=== PATIENT | female | born 1995 | race Hispanic/Latino ===

== ENCOUNTER 2017-08-12 12:42 | Emergency (ER) | payer OTHER ==
[2017-08-12 13:16] LABS: Urine Blood 1+ (NEG); Urine Glucose NEGATIVE (NEG); Urine Protein NEGATIVE (NEG); Urine Specific Gravity >1.030 (1.005-1.030)
[2017-08-12] MEDS ORDERED: KETOROLAC 30 MG/ML INJ ONE (13:17)
[2017-08-12] MEDS ORDERED: CYCLOBENZAPRINE 10 MG TAB ONE (13:17)
--- NOTE | 2017-08-12 13:42 | RAD REPORT ---
EXAM DESCRIPTION: RAD - C Spine Ap/Lat - 08/12/2017 1:37 pm CLINICAL HISTORY: Neck pain status post injury FINDINGS: The alignment of the cervical spine is satisfactory. No fracture or dislocation is seen.
--- NOTE | 2017-08-12 14:40 | EDPHYS ---
Physician Documentation [facility] Name: Sweta Figueroa Age: 22 yrs Sex: Female : 1995 Arrival Date: 08/12/2017 Time: 12:45 Bed 11 Private MD: Tulio Kelly V ED Physician Josafat Forrest HPI: 08/12 13:05 This 22 yrs old Female presents to ER via Ambulatory with complaints of Stiff cp Neck, Neck Pain, >24Hrs Old. 13:05 The patient or guardian complains of an injury, pain, that is acute, tenderness. The cp symptoms are located on the posterior and left lateral neck. 13:05 Onset: The symptoms/episode began/occurred yesterday, and became worse today. Context: cp The neck injury/problem resulted from while swimming this past Friday, fell and tumbled from board. Patient reports feeling "pop" after fall. Denies immediate pain. Pain started next day and worse today. 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 - Social history:: Smoking status: Patient/guardian denies using tobacco. - Ebola Screening: : No symptoms or risks identified at this time. ROS: 13:12 Eyes: Negative for injury, pain, redness, and discharge. cp 13:12 Constitutional: Negative for body aches, chills, fever, poor PO intake. 13:12 ENT: Negative for drainage from ear(s), ear pain, sore throat, difficulty swallowing, difficulty handling secretions. 13:12 Neck: Positive for pain with movement, pain at rest, stiffness, tenderness, Negative for swollen nodes. 13:12 Cardiovascular: Negative for chest pain, edema, palpitations. 13:12 Respiratory: Negative for cough, shortness of breath, wheezing. 13:12 Abdomen/GI: Negative for abdominal pain, nausea, vomiting, diarrhea, constipation. cp 13:12 Back: Negative for pain at rest, pain with movement, radiated pain. 13:12 : Negative for urinary symptoms, flank pain. 13:12 MS/extremity: Negative for decreased range of motion, paresthesias, swelling, tenderness. 13:12 Skin: Negative for cellulitis, rash. 13:12 Neuro: Negative for altered mental status, gait disturbance, headache, numbness, tingling, weakness. 13:12 All other systems are negative. Exam: 13:15 Constitutional: The patient appears in no acute distress, alert, awake, non-toxic, well cp developed, well nourished. 13:15 Head/Face: Normocephalic, atraumatic. cp 13:15 Eyes: Periorbital structures: appear normal, Pupils: equal, round, and reactive to light and accomodation, Conjunctiva: normal, no exudate, no injection, Sclera: no appreciated abnormality, Lids and lashes: appear normal, bilaterally. 13:15 ENT: External ear(s): are unremarkable, Ear canal(s): are normal, clear, TM's: bulging, is not appreciated, bilaterally, dullness, bilaterally, erythema, is not appreciated, bilaterally, Nose: is normal, Mouth: Lips: moist, Oral mucosa: pink and intact, moist, Posterior pharynx: is normal, airway is patent, no erythema, no exudate. 13:15 Neck: C-spine: vertebral tenderness, is not appreciated, crepitus, is not appreciated, ROM/movement: pain, that is moderate, with rotation to the right, Meningeal signs: are not present, Lymph nodes: no appreciated lymphadenopathy. 13:15 Chest/axilla: Inspection: normal, Palpation: is normal, no crepitus, no tenderness. 13:15 Cardiovascular: Rate: normal, Rhythm: regular, Pulses: Pulses are 2+ in right radial artery and left radial artery. 13:15 Respiratory: the patient does not display signs of respiratory distress, Respirations: normal, no use of accessory muscles, no retractions, no splinting, no tachypnea, labored breathing, is not present, Breath sounds: are clear throughout, no decreased breath sounds, no stridor, no wheezing. 13:15 Abdomen/GI: Exam negative for discomfort, distension, guarding, Inspection: abdomen appears normal. 13:15 Back: pain, is absent, ROM is normal. 13:15 Skin: cellulitis, is not appreciated, no rash present. 13:15 Neuro: Orientation: to person, place \\T\\ time. Mentation: lucid, able to follow commands, Cerebellar function: is grossly normal, Motor: moves all fours, strength is normal, Sensation: no obvious gross deficits, Gait: is steady, at a normal pace, without difficulty. Vital Signs: 12:50 BP 122 / 68; Pulse 82; Resp 16 S; Temp 98.0(TE); Pulse Ox 99% on R/A; Weight 72.57 kg aa5 (R); Height 5 ft. 7 in. (170.18 cm) (R); Pain 8/10; 14:55 BP 120 / 70; Pulse 80; Resp 17; Pulse Ox 100% on R/A; kr2 12:50 Body Mass Index 25.06 (72.57 kg, 170.18 cm) aa5 MDM: 12:54 Patient medically screened. cp 13:15 Differential diagnosis: C-Spine Fracture Cervical Disc Herniation Cervical Raiculopathy cp Cervical Spondylosis Neck Contusion Thoracic Outlet Syndrome torticollis, Whiplash Injury. 14:38 Data reviewed: vital signs, nurses notes, radiologic studies, plain films, and as a cp result, I will discharge patient. 14:38 Test interpretation: by ED physician or midlevel provider: plain radiologic studies. cp Counseling: I had a detailed discussion with the patient and/or guardian regarding: the historical points, exam findings, and any diagnostic results supporting the discharge/admit diagnosis, radiology results, the need for outpatient follow up, a family practitioner, to return to the emergency department if symptoms worsen or persist or if there are any questions or concerns that arise at home. Response to treatment: the patient's symptoms have mildly improved after treatment. 08/12 13:14 Order name: Urine Dipstick--Ancillary (enter results); Complete Time: 14:35 bd 08/12 13:14 Order name: Urine --Ancillary (enter results); Complete Time: 14:35 bd 08/12 12:54 Order name: Urine Dipstick-Ancillary (obtain specimen); Complete Time: 13:13 cp 08/12 13:09 Order name: XRAY C Spine Ap/lat; Complete Time: 14:35 cp 08/12 14:35 Interpretation: Report reviewed. cp 08/12 12:54 Order name: Urine Test (obtain specimen); Complete Time: 13:13 cp Administered Medications: 13:21 Drug: Flexeril 10 mg Route: PO; kr2 14:55 Follow up: Response: No adverse reaction kr2 13:22 Drug: TORadol 60 mg Route: IM; Site: right gluteus; kr2 14:56 Follow up: Response: No adverse reaction; Pain is decreased kr2 Disposition: 08/12/17 14:40 Discharged to Home. Impression: Strain of muscle, fascia and tendon at neck level. - Condition is Stable. - Discharge Instructions: Soft Tissue Injury of the Neck, Cervical Sprain. - Prescriptions for Naprosyn 500 mg Oral Tablet - take 1 tablet by ORAL route 2 times per day take with food; 20 tablet. Cyclobenzaprine 10 mg Oral Tablet - take 1 tablet by ORAL route every 8 hours As needed no driving while taking medication; 20 tablet. - Medication Reconciliation Form, Thank You Letter, Antibiotic Education, Prescription Opioid Use, Work release form form. - Follow up: Tulio Kelly MD; When: 2 - 3 days; Reason: Recheck today's complaints. - Problem is new. - Symptoms have improved. Addendum: 08/13/2017 16:17 Co-signature as Attending Physician, Josafat Forrest MD. r n Signatures: Dispatcher [employer] EDMS Josafat Forrest MD MD rn Calderon, Audri RN RN aa5 Socrates Saldivar PA PA cp Hailee Nath, RN RN kr2 Corrections: (The following items were deleted from the chart) 08/12 14:57 14:40 08/12/2017 14:40 Discharged to Home. Impression: Strain of muscle, fascia and kr2 tendon at neck level. Condition is Stable. Forms are Medication Reconciliation Form, Thank You Letter, Antibiotic Education, Prescription Opioid Use. Follow up: Tulio Kelly; When: 2 - 3 days; Reason: Recheck today's complaints. Problem is new. Symptoms have improved. cp
--- NOTE | 2017-08-12 14:40 | ER ---
Nurse's Notes [facility] Name: Sweta Figueroa Age: 22 yrs Sex: Female : 1995 Arrival Date: 08/12/2017 Time: 12:45 Bed 11 Private MD: Tulio Kelly V Diagnosis: Strain of muscle, fascia and tendon at neck level Presentation: 08/12 12:48 Presenting complaint: Patient states: "I was kneeboarding Friday and the board went aa5 under me and I flipped and my neck felt like it popped". Pt c/o neck pain. Transition of care: patient was not received from another setting of care. Onset of symptoms was August 2017. Risk Assessment: Do you want to hurt yourself or someone else? Patient reports no desire to harm self or others. Initial Sepsis Screen: Does the patient meet any 2 criteria? No. Patient's initial sepsis screen is negative. Does the patient have a suspected source of infection? No. Patient's initial sepsis screen is negative. Care prior to arrival: None. 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 - Social history:: Smoking status: Patient/guardian denies using tobacco. - Ebola Screening: : No symptoms or risks identified at this time. Screenin:55 Abuse screen: Denies threats or abuse. Nutritional screening: No deficits noted. aa5 Tuberculosis screening: No symptoms or risk factors identified. Fall Risk None identified. Assessment: 12:53 General: Appears uncomfortable, Behavior is calm, cooperative. Pain: Complains of pain aa5 in neck Pain does not radiate. Pain currently is 8 out of 10 on a pain scale. Quality of pain is described as aching, Pain began 2-3 days ago Is continuous, Aggravated by increased activity. Neuro: Level of Consciousness is awake, alert, obeys commands, Oriented to person, place, time, situation. Cardiovascular: No deficits noted. Respiratory: Airway is patent Respiratory effort is even, unlabored, Respiratory pattern is regular, symmetrical. GI: No signs and/or symptoms were reported involving the gastrointestinal system. : No signs and/or symptoms were reported regarding the genitourinary system. EENT: No signs and/or symptoms were reported regarding the EENT system. Derm: Skin is pink, warm \\T\\ dry. Musculoskeletal: Range of motion: intact in all extremities. 13:22 Reassessment: Patient taking to radiology by tech via wheelchair, no distress. kr2 13:41 Reassessment: Patient appears in no apparent distress at this time. Patient and/or kr2 family updated on plan of care and expected duration. Pain level reassessed. Patient is alert, oriented x 3, equal unlabored respirations, skin warm/dry/pink. 14:55 Reassessment: Patient appears in no apparent distress at this time. Patient and/or kr2 family updated on plan of care and expected duration. Pain level reassessed. Patient is alert, oriented x 3, equal unlabored respirations, skin warm/dry/pink. Patient states symptoms have improved. Vital Signs: 12:50 BP 122 / 68; Pulse 82; Resp 16 S; Temp 98.0(TE); Pulse Ox 99% on R/A; Weight 72.57 kg aa5 (R); Height 5 ft. 7 in. (170.18 cm) (R); Pain 8/10; 14:55 BP 120 / 70; Pulse 80; Resp 17; Pulse Ox 100% on R/A; kr2 12:50 Body Mass Index 25.06 (72.57 kg, 170.18 cm) aa5 ED Course: 12:45 Patient arrived in ED. mr 12:46 Tulio Kelly MD is Private Physician. mr 12:49 Triage completed. aa5 12:49 Arm band placed on. aa5 12:49 Patient has correct armband on for positive identification. aa5 12:51 Debbie Lennon, DEVORAH is Primary Nurse. aa5 12:54 Socrates Saldivar PA is PHCP. cp 12:54 Josafat Forrest MD is Attending Physician. cp 12:55 No provider procedures requiring assistance completed. aa5 13:31 Patient moved to radiology via wheelchair. jb2 13:32 XRAY C Spine Ap/lat In Process Unspecified. EDMS 14:39 Tulio Kelly MD is Referral Physician. cp 14:56 Patient did not have IV access during this emergency room visit. kr2 Administered Medications: 13:21 Drug: Flexeril 10 mg Route: PO; kr2 14:55 Follow up: Response: No adverse reaction kr2 13:22 Drug: TORadol 60 mg Route: IM; Site: right gluteus; kr2 14:56 Follow up: Response: No adverse reaction; Pain is decreased kr2 Outcome: 14:40 Discharge ordered by MD. kaela 14:56 Discharged to home ambulatory, with friend. kr2 14:56 Condition: good 14:56 Discharge instructions given to patient, Instructed on discharge instructions, follow up and referral plans. medication usage, Demonstrated understanding of instructions, follow-up care, medications, Prescriptions given X 2. 14:57 Patient left the ED. kr2 Signatures: Dispatcher [employer] EDMT SandersMarcia romero Gris Ramirese jb2 Debbie Lennon, RN RN aa5 Socrates Saldivar PA PA Hailee Auguste RN RN kr2
== END 2017-08-12 14:57 | disposition home or self-care (01) ==
LOC: ER 12:42
DX: S16.1XXA Strain of muscle, fascia and tendon at neck level, initial encounter (principal); X58.XXXA Exposure to other specified factors, initial encounter; Y93.11 Activity, swimming; Y92.9 Unspecified place or not applicable
CPT/HCPCS: 72040; 81003; 81025; 96372; 99283

== ENCOUNTER 2018-12-07 06:50 | Emergency (ER) | payer OTHER ==
[2018-12-07 08:17] LABS: Basophils % 0.7 % (0-1.3); Hematocrit 37.5 % (36.0-45.0); Lymphocytes % 31.4 % (15.3-44.8); MPV 9.4 fL (7.6-11.3); RBC Red Blood Cell Count 4.21 M/uL (3.86-4.86)
[2018-12-07 08:18] LABS: Urine Blood TRACE (NEG); Urine Glucose NEGATIVE (NEG); Urine Protein NEGATIVE (NEG); Urine Specific Gravity >1.030 (1.005-1.030)
[2018-12-07 08:20] LABS: BUN Blood Urea Nitrogen 18 mg/dL (7-18); Bicarbonate 28 mmol/L (21-32); Glucose Level 91 mg/dL (74-106); Potassium 3.9 mmol/L (3.5-5.1); Sodium Level 141 mmol/L (136-145)
[2018-12-07 08:36] LABS: Urine Bacteria 20-50 /HPF (<20); Urine Culture Reflex Order REFLEXED
[2018-12-07 08:37] LABS: Urine Mucus SLIGHT /HPF (NONE SEEN)
--- NOTE | 2018-12-07 14:13 | RAD REPORT ---
EXAM DESCRIPTION: CT STONE PROTOCOL CLINICAL HISTORY: Back and flank pain. COMPARISON: None. TECHNIQUE: Contiguous axial images obtained through the abdomen and pelvis without IV contrast Coronal and Sagittal reformatted images provided. This exam was performed according to our departmental dose-optimization program, which includes automated exposure control, adjustment of the mA and/or kV according to patient size and/or use of iterative reconstruction technique. FINDINGS: The inferior lung umaña are clear. Non-contrast imaging of the liver, spleen, pancreas, adrenal glands and kidney are within normal limits. No tract stone or hydronephrosis. Trace free fluid is seen in the pelvis. Sigmoid diverticulosis coli is present without diverticulitis. No lytic or blastic bone lesion. Mild spondylosis is present with mild retrolisthesis at L5-S1. IMPRESSION: No evidence of urinary tract stone or obstructive uropathy.
--- NOTE | 2018-12-07 15:02 | EDPHYS ---
Physician Documentation [facility] Name: Sweta Figueroa Age: 23 yrs Sex: Female : 1995 Arrival Date: 12/07/2018 Time: 06:54 Bed External Waiting Private MD: ED Physician Stanley Wade HPI: 12/07 07:40 This 23 yrs old Female presents to ER via Ambulatory with complaints of Back kb Pain. 07:40 The patient complains of pain in the left flank and right flank. The pain does not kb radiate. Onset: The symptoms/episode began/occurred at 03:00. Modifying factors: The symptoms are alleviated by nothing. the symptoms are aggravated by nothing. Associated signs and symptoms: The patient has no apparent associated signs or symptoms. Severity of pain: At its worst the pain was moderate in the emergency department the pain is unchanged. The patient has experienced a previous episode. The patient has not recently seen a physician. Pt reports bilateral flank pain that started at 0300. Denies any other symptoms, including frequency, dysuria, fever.. 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 - Social history:: Smoking status: . - Ebola Screening: : Patient negative for fever greater than or equal to 101.5 degrees Fahrenheit, and additional compatible Ebola Virus Disease symptoms Patient denies exposure to infectious person Patient denies travel to an Ebola-affected area in the 21 days before illness onset No symptoms or risks identified at this time. ROS: 07:38 Constitutional: Negative for fever, chills, and weight loss, ENT: Negative for injury, kb pain, and discharge, Neck: Negative for injury, pain, and swelling, Cardiovascular: Negative for chest pain, palpitations, and edema, Respiratory: Negative for shortness of breath, cough, wheezing, and pleuritic chest pain, Abdomen/GI: Negative for abdominal pain, nausea, vomiting, diarrhea, and constipation, : Negative for injury, bleeding, discharge, and swelling, MS/Extremity: Negative for injury and deformity, Skin: Negative for injury, rash, and discoloration, Neuro: Negative for headache, weakness, numbness, tingling, and seizure. 07:38 Back: Positive for flank pain, bilaterally. Exam: 07:38 Constitutional: This is a well developed, well nourished patient who is awake, alert, kb and in no acute distress. Head/Face: Normocephalic, atraumatic. ENT: Nares patent. No nasal discharge, no septal abnormalities noted. Tympanic membranes are normal and external auditory canals are clear. Oropharynx with no redness, swelling, or masses, exudates, or evidence of obstruction, uvula midline. Mucous membranes moist. Neck: Trachea midline, no thyromegaly or masses palpated, and no cervical lymphadenopathy. Supple, full range of motion without nuchal rigidity, or vertebral point tenderness. No Meningismus. Chest/axilla: Normal chest wall appearance and motion. Nontender with no deformity. No lesions are appreciated. Cardiovascular: Regular rate and rhythm with a normal S1 and S2. No gallops, murmurs, or rubs. Normal PMI, no JVD. No pulse deficits. Respiratory: Lungs have equal breath sounds bilaterally, clear to auscultation and percussion. No rales, rhonchi or wheezes noted. No increased work of breathing, no retractions or nasal flaring. Skin: Warm, dry with normal turgor. Normal color with no rashes, no lesions, and no evidence of cellulitis. MS/ Extremity: Pulses equal, no cyanosis. Neurovascular intact. Full, normal range of motion. Neuro: Awake and alert, GCS 15, oriented to person, place, time, and situation. Cranial nerves II-XII grossly intact. Motor strength 5/5 in all extremities. Sensory grossly intact. Cerebellar exam normal. Normal gait. 07:38 Abdomen/GI: Inspection: abdomen appears normal, Bowel sounds: normal, in all quadrants, Palpation: soft, in all quadrants, mild abdominal tenderness, in the right lower quadrant and left lower quadrant. 07:38 Back: CVA tenderness, that is mild, is noted bilaterally. Vital Signs: 07:08 BP 114 / 73; Pulse 72; Resp 16; Pulse Ox 100% on R/A; Weight 74.84 kg; Height 5 ft. 7 iw in. (170.18 cm); Pain 5/10; 09:09 BP 112 / 80; Pulse 64; Resp 16; Pulse Ox 98% ; bp 07:08 Body Mass Index 25.84 (74.84 kg, 170.18 cm) iw MDM: 06:58 Patient medically screened. kb 07:35 Data reviewed: vital signs, nurses notes. Data interpreted: Pulse oximetry: on room air kb is 100 %. Interpretation: normal. 09:39 Counseling: I had a detailed discussion with the patient and/or guardian regarding: the kb historical points, exam findings, and any diagnostic results supporting the discharge/admit diagnosis, lab results, radiology results, the need for outpatient follow up, a family practitioner, to return to the emergency department if symptoms worsen or persist or if there are any questions or concerns that arise at home. 12/07 07:27 Order name: Urine Dipstick-Ancillary (obtain specimen) kb Administered Medications: No medications were administered Disposition: 12/07/18 09:40 Discharged to Home. Impression: Bilateral Flank Pain. - Condition is Stable. - Discharge Instructions: Flank Pain, [id number]. - Prescriptions for Diclofenac Sodium 75 mg Oral Tablet, Delayed Release (E.C.) - take 1 tablet by ORAL route 2 times per day As needed; 30 tablet. - Medication Reconciliation Form, Thank You Letter, Antibiotic Education, Prescription Opioid Use, Work release form form. - Follow up: Emergency Department; When: As needed; Reason: Worsening of condition. Follow up: Private Physician; When: 2 - 3 days; Reason: Recheck today's complaints, Continuance of care, Re-evaluation by your physician. Addendum: 12/10/2018 05:10 Co-signature as Attending Physician, Stanley Wade MD Available for consultation at p s1 all times . Signatures: Barb Spear, DELMY-Stefan BROCK-Sally Enriquez RN RN Stanley Ivy MD MD ps1 Corrections: (The following items were deleted from the chart) 12/07 13:44 09:40 12/07/2018 09:40 Discharged to Home. Impression: Bilateral Flank Pain. Condition iw is Stable. Forms are Medication Reconciliation Form, Thank You Letter, Antibiotic Education, Prescription Opioid Use. Follow up: Emergency Department; When: As needed; Reason: Worsening of condition. Follow up: Private Physician; When: 2 - 3 days; Reason: Recheck today's complaints, Continuance of care, Re-evaluation by your physician. kb
--- NOTE | 2018-12-07 15:02 | ER ---
Nurse's Notes [facility] Name: Sweta Figueroa Age: 23 yrs Sex: Female : 1995 Arrival Date: 12/07/2018 Time: 06:54 Bed External Waiting [facility] MD: Diagnosis: Bilateral Flank Pain Presentation: 12/07 07:05 Presenting complaint: Patient states: mid back pain started at 0300 this morning, abd iw cramping started 30 minutes later, denies n/v/d, denies urinary s/s, states it feels like kidney pain. Transition of care: patient was not received from another setting of care. Onset of symptoms was December 07, 2018. Risk Assessment: Do you want to hurt yourself or someone else? Patient reports no desire to harm self or others. Initial Sepsis Screen: Does the patient meet any 2 criteria? No. Patient's initial sepsis screen is negative. Does the patient have a suspected source of infection? No. Patient's initial sepsis screen is negative. Care prior to arrival: None. 07:05 Method Of Arrival: Ambulatory iw 07:05 Acuity: DOMINIQUE 3 iw Triage Assessment: 07:19 General: Appears in no apparent distress. comfortable, Behavior is cooperative, bp appropriate for age, anxious. Pain: Complains of pain in back. EENT: No deficits noted. Neuro: No deficits noted. Cardiovascular: No deficits noted. Respiratory: No deficits noted. GI: No signs and/or symptoms were reported involving the gastrointestinal system. : No signs and/or symptoms were reported regarding the genitourinary system. Derm: No deficits noted. Musculoskeletal: Circulation, motion, and sensation intact. Range of motion: intact in all extremities. 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 - Social history:: Smoking status: . - Ebola Screening: : Patient negative for fever greater than or equal to 101.5 degrees Fahrenheit, and additional compatible Ebola Virus Disease symptoms Patient denies exposure to infectious person Patient denies travel to an Ebola-affected area in the 21 days before illness onset No symptoms or risks identified at this time. Screenin:21 Abuse screen: Denies threats or abuse. Denies injuries from another. Nutritional bp screening: No deficits noted. Tuberculosis screening: No symptoms or risk factors identified. Fall Risk None identified. Assessment: 07:10 General: SEE TRIAGE NOTE. Neuro: No deficits noted. bp 09:00 Reassessment: Patient and/or family updated on plan of care and expected duration. Pain bp level reassessed. Patient is alert, oriented x 3, equal unlabored respirations, skin warm/dry/pink. 10:50 Reassessment: PT D/C HOME AMBULATORY WITH FAMILY, DX WITH FLANK PAIN. bp Vital Signs: 07:08 BP 114 / 73; Pulse 72; Resp 16; Pulse Ox 100% on R/A; Weight 74.84 kg; Height 5 ft. 7 iw in. (170.18 cm); Pain 5/10; 09:09 BP 112 / 80; Pulse 64; Resp 16; Pulse Ox 98% ; bp 07:08 Body Mass Index 25.84 (74.84 kg, 170.18 cm) iw ED Course: 06:54 Patient arrived in ED. mr 06:55 Rainer Barb, [facility] kb 06:55 Stanley Wade MD is Attending Physician. kb 07:00 Fermin Peck, DEVORAH is Primary Nurse. bp 07:07 Triage completed. iw 07:08 Arm band placed on. iw 07:21 Patient has correct armband on for positive identification. Bed in low position. Call bp light in reach. Side rails up X2. 07:46 Urine collected: clean catch specimen, clear. dh3 07:53 Initial lab(s) drawn, by ia, sent to lab. Inserted saline lock: 20 gauge in right dh3 antecubital area, using aseptic technique. Blood collected. 10:51 No provider procedures requiring assistance completed. IV discontinued, intact, bp bleeding controlled, No redness/swelling at site. Pressure dressing applied. Administered Medications: No medications were administered Outcome: 09:40 Discharge ordered by . kb 10:51 Discharged to home ambulatory, with family. bp 10:51 Condition: stable 10:51 Discharge instructions given to patient, Instructed on discharge instructions, follow up and referral plans. medication usage, Demonstrated understanding of instructions, follow-up care, medications, Prescriptions given X 1. 13:44 Patient left the ED. iw Addendum: 12/10/2018 15:07 Addendum: Culture Results: Positive urine culture. Patient was not prescribed s s antibiotics at discharge. Report given to JOLEEN for further evaluation and then to pr specialist for follow up with patient. Phone call Attempt #1 Attempted to call patient. White noise heard with voices in the background. Unable to hear patient over phone. Certified letter sent to listed address for patient. Signatures: Barb Spear, ROSA ISELA BROCK-Cyndi Nair mr Sally Perez, RN DEVORAH iw Rakel Mark RN RN [facility] Fermin Peck RN RN
[2018-12-07 15:49] VITALS: BP 112/80; O2SAT 98
== END 2018-12-07 13:44 | disposition home or self-care (01) ==
LOC: ER 06:50
DX: R10.9 Unspecified abdominal pain (principal)
CPT/HCPCS: 36415; 74176; 76377; 80048; 81003; 81015; 85025; 87077; 87086; 87088; 87186; 99283

== ENCOUNTER 2019-09-20 18:27 | Emergency (ER) | payer OTHER ==
--- NOTE | 2019-09-20 20:36 | ER ---
Nurse's Notes [facility] Name: Sweta Figueroa Age: 24 yrs Sex: Female : 1995 Arrival Date: 09/20/2019 Time: 18:28 Bed Waiting Private MD: Diagnosis: Presentation: 09/19 18:48 Chief complaint: Patient states: Lower abdominal pain and low back pain began Friday. ll1 Started a very heavy period on the with small clots in it. Denies dysuria. Has control implant in left arm. Coronavirus screen: Proceed with normal triage. Patient denies a cough. Patient denies shortness of breath or difficulty breathing. Patient denies measured and/or subjective temperature greater than 100.4F prior to today's visit. Patient denies travel on a cruise ship or to a country the [facility] currently lists as an affected area. Patient denies contact with known and/or suspected case of COVID-19. Ebola Screen: Patient denies travel to an Ebola-affected area in the 21 days before illness onset. Initial Sepsis Screen: Does the patient meet any 2 criteria? No. Patient's initial sepsis screen is negative. Risk Assessment: Do you want to hurt yourself or someone else? Patient reports no desire to harm self or others. Onset of symptoms was September 18, 2019. 18:48 Method Of Arrival: Ambulatory ll1 18:48 Acuity: DOMINIQUE 3 ll1 Historical: - Allergies: 18:51 No Known Allergies; ll1 - PMHx: 18:51 None; ll1 - PSHx: 18:51 None; ll1 - Immunization history:: Flu vaccine is not up to date. - Social history:: Smoking status: Reported history of juuling and/or vaping. Patient/guardian denies using alcohol, street drugs. Vital Signs: 18:48 Pulse 83; Resp 18; Temp 98.5; Pulse Ox 100% ; Pain 8/10; ll1 18:51 BP 113 / 75; ll1 ED Course: 18:28 Patient arrived in ED. fj1 18:50 Triage completed. ll1 18:51 Arm band placed on Patient notified of wait time. ll1 20:33 Not in lobby. ll1 Administered Medications: No medications were administered Outcome: 20:34 Patient left the ED. ll1 Signatures: Khari Castro1 Rosa Ingram, RN RN ll1
[2019-09-20 21:34] VITALS: TEMP 98.5; O2SAT 100
[2019-09-20 21:35] VITALS: BP 113/75
== END 2019-09-20 20:34 | disposition left against medical advice (07) ==
LOC: ER 18:27
DX: R10.30 Lower abdominal pain, unspecified (principal); Z53.21 Procedure and treatment not carried out due to patient leaving prior to being seen by health care provider
CPT/HCPCS: 99281

== ENCOUNTER 2022-05-15 09:22 | Emergency (ER) | payer BC ==
[2022-05-15 09:50] LABS: Urine Blood Negative (Negative); Urine Glucose Negative (Negative); Urine Protein Negative (Negative); Urine Specific Gravity 1.025 (1.005-1.030); Urine pH 6.5 (5.0-7.0)
[2022-05-15 10:02] LABS: Urine Specific Gravity/Preg 1.025 (1.005-1.030)
[2022-05-15 10:10] LABS: Urine Bacteria <20 /HPF (<20); Urine Mucus 2+ /HPF (None Seen); Urine RBC <5 /HPF (None Seen)
[2022-05-15 11:10] VITALS: TEMP 97.8
[2022-05-15 11:12] VITALS: BP 118/68; O2SAT 99
--- NOTE | 2022-05-31 15:21 | EDPHYS ---
Physician Documentation [facility] Name: Sweta Figueroa Age: 27 yrs Sex: Female : 1995 Arrival Date: 05/15/2022 Time: 09:34 Bed 15 Private MD: ED Physician Vasquez Sharif HPI: 05/15 09:54 This 27 yrs old Female presents to ER via Ambulatory with complaints of pm1 Nausea, Possible . 09:54 The patient presents to the emergency department with nausea, that is mild. Onset: The pm1 symptoms/episode began/occurred yesterday. Possible causes: . The symptoms are aggravated by nothing. The symptoms are alleviated by nothing. Associated signs and symptoms: Pertinent negatives: abdominal pain, diarrhea, fever, vomiting. Severity of symptoms: in the emergency department the symptoms have improved. The patient has not experienced similar symptoms in the past. The patient has not recently seen a physician. Patient presenting to ER with complaints of request for test. Patient with positive home test last night and this morning. 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 - Social history:: Smoking status: Reported history of juuling and/or vaping. ROS: 09:54 Constitutional: Negative for fever, chills, and weight loss, Cardiovascular: Negative pm1 for chest pain, palpitations, and edema, Respiratory: Negative for shortness of breath, cough, wheezing, and pleuritic chest pain. 09:54 MS/Extremity: Negative for injury and deformity, Skin: Negative for injury, rash, and discoloration. 09:54 Abdomen/GI: Positive for nausea, Negative for abdominal pain, vomiting, diarrhea. 09:54 : Positive for Increased urination last night, Negative for vaginal bleeding, vaginal discharge, vaginal itching. 09:54 All other systems are negative. Exam: 09:54 Constitutional: This is a well developed, well nourished patient who is awake, alert, pm1 and in no acute distress. Head/Face: Normocephalic, atraumatic. 09:54 Skin: Warm, dry with normal turgor. Normal color with no rashes, no lesions, and no evidence of cellulitis. MS/ Extremity: Pulses equal, no cyanosis. Neurovascular intact. Full, normal range of motion. 09:54 Cardiovascular: Exam negative for acute changes. 09:54 Respiratory: Exam negative for acute changes, respiratory distress, shortness of breath. 09:54 Neuro: Exam negative for acute changes, Orientation: is normal, Mentation: is normal, Motor: is normal, moves all fours. Vital Signs: 09:38 BP 120 / 74; Pulse 78; Resp 17; Temp 97.8; Pulse Ox 100% ; Weight 95.25 kg; ap3 10:58 BP 118 / 68; Pulse 72; Resp 18; Pulse Ox 99% ; ko1 MDM: 09:44 Patient medically screened. pm1 09:54 Data reviewed: vital signs. pm1 09:54 Differential diagnosis: , urinary tract infection, candidiasis. pm1 10:00 ED course: Patient reports no other complaints except for desire for confirm . pm1 Patient took 2 test roughly 3 weeks ago that came back negative. Patient reports onset of nausea yesterday and took a test last night which came back positive and a test this morning that came back positive also. Patient needs confirmed test for work purposes. 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 Patient reported increased urination yesterday that has resolved today, will check urine micro to rule out UTI and yeast infection. Patient reports history of yeast infection with prior . 10:00 ED course: Patient believes she is roughly 6 weeks and conception occurred pm1 when she switched between her Implanon to the patch. 10:40 Counseling: I had a detailed discussion with the patient and/or guardian regarding: the pm1 historical points, exam findings, and any diagnostic results supporting the discharge/admit diagnosis, lab results, the need for outpatient follow up, an OB/Gyne specialist, to return to the emergency department if symptoms worsen or persist or if there are any questions or concerns that arise at home. 05/15 09:51 Order name: Urine Dipstick-Ancillary; Complete Time: 09:53 EDMS 03 09:54 Order name: Urine Microscopic Only; Complete Time: 10:40 pm1 05/15 09:59 Order name: Urine --Ancillary (enter results); Complete Time: 10:40 bd 05/15 09:54 Order name: Urine Test (obtain specimen); Complete Time: 09:59 pm1 Administered Medications: No medications were administered Disposition: 13:38 Co-signature as Attending Physician, Vasquez Sharif DO I was immediately available on-site ms3 in the Emergency Department for consultation in the care of the patient. Disposition Summary: 05/15/22 10:41 Discharge Ordered Location: Home pm1 Problem: new pm1 Symptoms: have improved pm1 Condition: Stable pm1 Diagnosis - Encounter for test, result positive pm1 Followup: pm1 - With: Emergency Department - When: 2 - 3 days - Reason: Recheck today's complaints, Continuance of care, Re-evaluation by your physician Discharge Instructions: - Discharge Summary Sheet pm1 - First Trimester of pm1 Forms: - Medication Reconciliation Form pm1 - Thank You Letter pm1 - Antibiotic Education pm1 - Prescription Opioid Use pm1 Signatures: Dispatcher [employer] Chay Keane NP SENIOR MARKETING ENGINEER pm1 Ashley Osorio RN RN ap3 Vasquez Sharif DO DO ms3
--- NOTE | 2022-05-31 15:21 | ER ---
Nurse's Notes [facility] Name: Sweta Figueroa Age: 27 yrs Sex: Female : 1995 Arrival Date: 05/15/2022 Time: 09:34 Bed 15 Private MD: Diagnosis: Encounter for test, result positive Presentation: 05/15 09:38 Chief complaint: Patient states: she had 2 positive tests at home, but her OB ap3 cant get her in for 2 weeks. patient states she needs to know for sure for work if she is or not. Coronavirus screen: At this time, the client does not indicate any symptoms associated with coronavirus-19. Ebola Screen: No symptoms or risks identified at this time. Initial Sepsis Screen: Does the patient meet any 2 criteria? No. Patient's initial sepsis screen is negative. Does the patient have a suspected source of infection? No. Patient's initial sepsis screen is negative. Risk Assessment: Do you want to hurt yourself or someone else? Patient reports no desire to harm self or others. Onset of symptoms was May 15, 2022. 09:38 Method Of Arrival: Ambulatory ap3 09:38 Acuity: DOMINIQUE 4 ap3 Triage Assessment: 09:41 General: Appears in no apparent distress. Behavior is calm, cooperative. Pain: Denies ap3 pain. Neuro: Level of Consciousness is awake, alert, obeys commands, Oriented to person, place, time, situation. Cardiovascular: Patient's skin is warm and dry. Respiratory: Airway is patent Respiratory effort is even, unlabored, Respiratory pattern is regular, symmetrical. GI: Reports nausea. : Reports possible . 10:58 Derm: No deficits noted. Musculoskeletal: No deficits noted. 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 - Social history:: Smoking status: Reported history of juuling and/or vaping. Screenin:42 [facility] ED Fall Risk Assessment (Adult) History of falling in the last 3 months, ap3 including since admission No falls in past 3 months (0 pts). Abuse screen: Denies threats or abuse. Nutritional screening: No deficits noted. Tuberculosis screening: No symptoms or risk factors identified. Assessment: 10:58 GI: No deficits noted. ko1 Vital Signs: 09:38 BP 120 / 74; Pulse 78; Resp 17; Temp 97.8; Pulse Ox 100% ; Weight 95.25 kg; ap3 10:58 BP 118 / 68; Pulse 72; Resp 18; Pulse Ox 99% ; ko1 ED Course: 09:34 Patient arrived in ED. mr 09:40 Triage completed. ap3 09:42 Arm band placed on right wrist. ap3 09:44 Chay Knapp NP is PHCP. pm1 09:44 Vasquez Sharif DO is Attending Physician. pm1 09:52 Lani Levy, RN is Primary Nurse. ko1 10:00 Urine Microscopic Only Sent. ko1 10:58 Patient has correct armband on for positive identification. Bed in low position. Call ko1 light in reach. Pulse ox on. NIBP on. 10:58 No provider procedures requiring assistance completed. Patient did not have IV access ko1 during this emergency room visit. Administered Medications: No medications were administered Medication: 10:58 VIS not applicable for this client. ko1 Outcome: 10:41 Discharge ordered by MD. pm1 10:58 Discharged to home ambulatory. ko1 10:58 Condition: good 10:58 Discharge instructions given to patient, Instructed on discharge instructions, follow up and referral plans. medication usage, Demonstrated understanding of instructions, follow-up care, medications. 10:59 Patient left the ED. ko1 Signatures: Cyndi Sanders mr Chay Knapp NP CHILD CARE LEADER pm1 Ashley Osorio RN RN ap3 Lani Levy, DEVORAH RN ko1
== END 2022-05-15 10:59 | disposition home or self-care (01) ==
LOC: ER 09:22
DX: Z32.01 Encounter for pregnancy test, result positive (principal)
CPT/HCPCS: 81003; 81015; 81025; 99283